=== PATIENT | female | born 1990 | race Caucasian/White ===

== ENCOUNTER 2022-08-25 19:08 | Inpatient (IN) | payer BC ==
[2022-08-25] MEDS ORDERED: Methylergonovine 0.2 MG/1 ML Amp IM PRN (22:56)
[2022-08-25] MEDS ORDERED: Sodium Chloride 0.9% 10 ML Syringe FLUSH PRN (22:56)
[2022-08-25] MEDS ORDERED: Sodium Chloride 0.9% 20 ML SDV IV PRN (22:56)
[2022-08-25] MEDS ORDERED: Carboprost Tromethamine 250 MCG/1 mL Vial IM PRN (22:56)
[2022-08-25] MEDS ORDERED: Tranexamic Acid 1,000 MG in Sodium Chloride 0.9% 100 ML IV PRN (22:56)
[2022-08-25] MEDS ORDERED: Sodium Chloride 0.9% 2.5 ML Syringe FLUSH PRN (22:56)
[2022-08-25] MEDS ORDERED: Ondansetron 4 MG/2 ML SDV IVPUSH PRN (22:56)
[2022-08-25] MEDS ORDERED: Misoprostol 200 MCG Tab PO PRN (22:56)
[2022-08-25] MEDS ORDERED: Lidocaine 1% 50 ML MDV INJECT PRN (22:56)
[2022-08-25] MEDS ORDERED: Butorphanol 1 MG/ML SDV IVPUSH PRN (22:56)
[2022-08-25] MEDS ORDERED: Water For Irrigation,Sterile 1,000 ML Container IRR PRN (22:56)
[2022-08-25] MEDS ORDERED: Oxytocin/0.9 % Sodium Chloride 30 UNIT/500 ML BAG IV SCH (23:00)
[2022-08-25] MEDS ORDERED: Ampicillin 2 GM in Sodium Chloride 0.9% 100 ML IV ONE (23:00)
[2022-08-25] MEDS: Lactated Ringers 1,000 ML IV SCH (23:37)
[2022-08-25 23:49] LABS: HEMOGLOBIN 13.3 g/dL (12.0-16.0); MEAN CORPUSCULAR HEMOGLOBIN 30.9 pg (27.0-32.0); MEAN CORPUSCULAR VOLUME 88.2 fL (80.0-98.0); MEAN PLATELET VOLUME 11.6 fL (7.40-12.00); RED BLOOD CELL COUNT 4.31 M/uL (4.30-5.90); WHITE BLOOD CELL COUNT,WBC 13.74 K/uL (4.0-11.0)
[2022-08-26] MEDS: Ampicillin 1 GM in Sodium Chloride 0.9% 50 ML IV SCH ×5 (03:31→11:37)
[2022-08-26] MEDS: Lactated Ringers 1,000 ML IV SCH ×2 (07:10→10:42)
[2022-08-26] MEDS ORDERED: Dexmedetomidine 200 MCG/2 ML SDV ONE (07:30)
[2022-08-26] MEDS ORDERED: Ropivacaine/PF 400 MG/200 ML PCA ONE (07:30)
[2022-08-26] MEDS ORDERED: Phenylephrine HCl 0.5 MG/5 ML AMP ONE (07:30)
[2022-08-26] MEDS ORDERED: Phenylephrine HCl 0.5 MG/5 ML AMP IVPUSH PRN (08:53)
[2022-08-26] MEDS ORDERED: ePHEDrine 50 MG/ML SDV IVPUSH PRN ×2 (08:53)
[2022-08-26] MEDS ORDERED: Ropivacaine HCl/PF 400 MG in Premix Bag 1 BAG EPIDUR SCH (09:00)
[2022-08-26] MEDS ORDERED: Ibuprofen 400 MG Tab PO PRN (15:38)
[2022-08-26] MEDS ORDERED: Witch Hazel Medicated Pads 40/Jar TOP PRN (15:38)
[2022-08-26] MEDS ORDERED: Docusate Sodium 100 MG Cap PO PRN (15:38)
[2022-08-26] MEDS ORDERED: Lanolin 100% Cream 7 GM Tube TOP PRN (15:38)
[2022-08-26] MEDS ORDERED: oxyCODONE 5 MG Tab PO PRN (15:38)
[2022-08-26] MEDS ORDERED: Benzocaine/Menthol 20%-0.5% Spray 78 GM Cannister TOP PRN (15:38)
[2022-08-26] MEDS ORDERED: Bisacodyl 10 MG Supp RECTAL PRN (15:38)
[2022-08-26] MEDS ORDERED: Acetaminophen 500 MG Tab PO PRN ×2 (15:38)
[2022-08-26] MEDS: Ibuprofen 800 MG Tab PO PRN (16:53)
[2022-08-26 18:38] LABS: PH,UMBILICAL VENOUS 7.394 (7.25-7.45)
[2022-08-27] MEDS: Ibuprofen 800 MG Tab PO PRN ×4 (02:58→22:14)
[2022-08-27 06:21] LABS: HEMOGLOBIN 10.6 g/dL (12.0-16.0)
[2022-08-28] MEDS: Ibuprofen 800 MG Tab PO PRN (06:24)
== END 2022-08-28 12:40 | disposition home or self-care (01) | DRG 560 ==
LOC: MW.OBCHECK 19:08 → MW.OB 19:09 → MW.OBCHECK 22:56 → MW.OB 22:56 → OBSVTOIN 08-26 15:06 → MW.OB 08-26 18:28
PROVIDERS: ADMIT Obstetrics & Gynecology; ATTEND Obstetrics & Gynecology
PROC: 10E0XZZ Delivery of Products of Conception, External Approach (ICD-10-PCS; principal; 2022-08-26)
PROC: 10907ZC Drainage of Amniotic Fluid, Therapeutic from Products of Conception, Via Natural or Artificial Opening (ICD-10-PCS; 2022-08-26)
PROC: 0HQ9XZZ Repair Perineum Skin, External Approach (ICD-10-PCS; 2022-08-26)
DX: O99.824 Streptococcus B carrier state complicating childbirth (principal); O70.0 First degree perineal laceration during delivery; O71.82 Other specified trauma to perineum and vulva; O47.1 False labor at or after 37 completed weeks of gestation; Z37.0 Single live birth; Z3A.39 39 weeks gestation of pregnancy
CPT/HCPCS: 36415; 51702; 59025; 59409; 59414; 82803; 85014; 85018; 85027; 86592; 86850; 86900; 86901; A9270-GY; J0290; J0595; J2590; J2795; J3490; J7120